=== PATIENT | female | born 1935 | race Caucasian/White ===

== ENCOUNTER → 2017-12-08 | Outpatient (CLI) | payer MEDICARE | LOC: M.ULTRA 12:14 | DX: I73.9 Peripheral vascular disease, unspecified (principal) ==

== ENCOUNTER 2018-03-16 17:54 | Inpatient (IN) | payer MEDICARE ==
[~2018-03-16] VITALS: Ht 165.1 cm; Wt 65.8 kg
--- NOTE | ~2018-03-16 | CON ---
[address] [address] CONSULTATION Name: NICKNICOLETYLER Hannah Room: [address] IN [facility].#: [id number] Admission: 03/16/18 Attend Phys: Too Guidry MD Discharge: Date of : 39 Report #: [id number] THIS REPORT FOR: //name// CC: Too Wilsona Isaac HISTORY OF PRESENT ILLNESS: An 82-year-old female was seen complaining of pain of her left ankle. She noted the insidious onset of left ankle pain several weeks ago. Her pain became progressively worse to the point that she was unable to bear weight on her left leg. She presented to the Emergency Room where she was evaluated and was advised to be hospitalized for acute treatment. She feels that she recently had chills and fevers. She has never had symptoms of this nature previously. She had x-rays performed of her left ankle, which revealed mild degenerative changes with mild effusion. These findings were confirmed on a CT scan. PHYSICAL EXAMINATION: Today revealed a well-developed, well-nourished female who is alert, cooperative, and well oriented x 3. She was noted to have diffuse swelling about the left ankle joint. There was some fullness about the ankle joint, indicating an effusion. The ankle joint is tender, warm and red. It was felt that she had a cellulitis with synovitis of the left ankle and was placed on parenteral antibiotics. She incidentally had a uric acid performed in the Emergency Room. This study was within normal limits. Other inflammatory diseases will have to be ruled out in addition to possible infectious etiology. She will be followed while hospitalized. DIAGNOSES: Cellulitis and synovitis of the left ankle. Thank you for the opportunity of seeing the patient. By: [id number] Weeks MD /nt
[2018-03-16 18:09] VITALS: BP 135/106
[2018-03-16] MEDS ORDERED: ASPIR 8181 MG PO (18:14)
[2018-03-16] MEDS ORDERED: NORVASC10 MG PO (18:14)
[2018-03-16] MEDS ORDERED: LOPRESSOR50 MG PO (18:14)
[2018-03-16 19:40] LABS: HEMATOCRIT 38.4 % (37.0-47.0); MCH 33.3 pg (26.0-34.0); MCV 98.1 fL (80.0-100.0); MPV 8.6 fl. (7.2-11.1); NUCLEATED RBCS 0 /100WBC; PLATELET COUNT* 213 thou/uL (150-400); RBC 3.91 mil/uL (4.20-5.00); RDW-CV 12.3 % (10.5-14.5); WBC 7.7 thou/uL (4.0-11.0)
[2018-03-16 19:49] LABS: ANION GAP 8 mmol/L (7-16); BUN 20 mg/dL (7-18); CALCIUM 9.2 mg/dL (8.5-10.1); CHLORIDE 99 mmol/L (98-107); CO2 26 mmol/L (21-32); CREATININE 1.1 mg/dL (0.6-1.3); GLUCOSE 130 mg/dL (70-99); SODIUM 133 mmol/L (136-145)
[2018-03-16 19:50] LABS: PROTIME 10.6 Seconds (9.20-11.50)
[2018-03-16 20:00] LABS: ALBUMIN 3.4 g/dL (3.4-5.0); ALKALINE PHOSPHATASE 56 U/L (46-116); NT-PRO BRAIN NAT PEPTIDE 863 pg/mL (<300); SGOT 15 U/L (15-37); SGPT 15 U/L (30-65); TOTAL BILIRUBIN 0.5 mg/dL (<0.1-1.0); TOTAL PROTEIN 7.3 g/dL (6.4-8.2); TROPONIN-I LEVEL <0.06 ng/mL (<0.06)
[2018-03-16 20:09] LABS: ABSOLUTE EOSINOPHILS 0.2 thou/uL (0.0-0.7); ABSOLUTE MONOCYTES 0.8 thou/uL (0.0-1.2); ABSOLUTE NEUTROPHILS 5.7 thou/uL (1.6-8.1)
[2018-03-16 20:10] LABS: PLATELET ESTIMATE ADEQUATE
[2018-03-16 20:44] LABS: ESR (SEDRATE) 68 mm/hr (0-30)
[2018-03-16 21:59] VITALS: BP 121/48
[2018-03-16 22:00] VITALS: BP 130/49
[2018-03-17 09:50] VITALS: BP 137/60
--- NOTE | 2018-03-17 13:56 | EKG ---
[place] [address] ELECTROCARDIOGRAM REPORT Name: MIGUEL TUCKERDale Hannah Room: [address] IN [facility]#: [id number] Admission: 03/16/18 Attend Phys: Too Guidry MD Discharge: Date of : 39 Report #: [id number] THIS REPORT FOR: //name// [facility] ED Test Date: 2018-03-16 Test Time: 19:39:54 Pat Name: TYLER TUCKER Department: Room: [facility] Gender: Manager Exchange: Saroj DOWNS : 1935 Requested By: Shahla Enrique Order Number: [id number] MD: Cristofer Calles Measurements Intervals [place] Rate: 65 P: 63 ME: 167 QRS: -41 QRSD: 92 T: 45 QT: 380 QTc: 396 Interpretive Statements Sinus rhythm Ventricular premature complex Left axis deviation Abnormal R-wave progression, early transition No previous ECG available for comparison Electronically Signed On 03-17-2018 13:56:41 TREASURY ANALYST by Cristofer Calles [email or web address] <ELECTRONICALLY SIGNED> By: Cristofer Calles MD, [facility] 03/17/18 1982 38 38 Cristofer Calles MD, [facility] /EPI
[2018-03-17 16:00] VITALS: BP 128/54
[2018-03-18 04:24] LABS: HEMATOCRIT 34.2 % (37.0-47.0); HEMOGLOBIN 11.8 gm/dL (12.0-15.0); MCH 33.9 pg (26.0-34.0); MCHC 34.5 g/dL (28.0-37.0); MCV 98.3 fL (80.0-100.0); MPV 8.7 fl. (7.2-11.1); RBC 3.47 mil/uL (4.20-5.00); RDW-CV 12.2 % (10.5-14.5); WBC 5.9 thou/uL (4.0-11.0)
[2018-03-18 04:59] LABS: CALCIUM 7.8 mg/dL (8.5-10.1); CREATININE 0.8 mg/dL (0.6-1.3); MAGNESIUM 1.9 mg/dL (1.8-2.4); POTASSIUM 3.8 mmol/L (3.5-5.1)
[2018-03-18 08:35] VITALS: BP 142/68
[2018-03-18 16:31] VITALS: BP 143/70
[2018-03-18 20:00] VITALS: BP 102/66
[2018-03-19 04:00] VITALS: BP 143/77
[2018-03-19 04:31] LABS: CALCIUM 8.9 mg/dL (8.5-10.1); CREATININE 0.9 mg/dL (0.6-1.3); MAGNESIUM 2.1 mg/dL (1.8-2.4); POTASSIUM 4.4 mmol/L (3.5-5.1)
[2018-03-19 08:00] VITALS: BP 150/63
[2018-03-19 15:49] VITALS: BP 140/75
[2018-03-19 20:00] VITALS: BP 139/60
[2018-03-20 08:15] VITALS: BP 138/48
[2018-03-20 15:40] VITALS: BP 137/51
[2018-03-20 20:00] VITALS: BP 105/50
[2018-03-21 04:49] LABS: CALCIUM 8.8 mg/dL (8.5-10.1); CREATININE 0.9 mg/dL (0.6-1.3); POTASSIUM 3.7 mmol/L (3.5-5.1)
[2018-03-21 08:30] VITALS: BP 158/71
[2018-03-21] MEDS ORDERED: KEFLEX500 M1 PO (13:02)
[2018-03-21] MEDS ORDERED: PREDNISONE 20 M20 M1 PO (13:04)
[2018-03-21 13:34] VITALS: BP 158/71
[2018-03-21 15:01] VITALS: BP 158/71
== END 2018-03-21 15:01 | disposition home health service (06) | DRG 872 ==
LOC: M.ERS 17:54 → M.ORTHSURG 20:46 → M.TBA-ER 20:46 → M.ORTHSURG 22:03
PROVIDERS: Emergency Medicine; Family Medicine; Internal Medicine; ADMIT Internal Medicine
DX: A41.9 Sepsis, unspecified organism (principal); E87.1 Hypo-osmolality and hyponatremia; N17.9 Acute kidney failure, unspecified; L03.116 Cellulitis of left lower limb; M65.872 Other synovitis and tenosynovitis, left ankle and foot; I49.3 Ventricular premature depolarization; J45.909 Unspecified asthma, uncomplicated; Z90.710 Acquired absence of both cervix and uterus; Z79.82 Long term (current) use of aspirin; Z79.899 Other long term (current) drug therapy; Z88.8 Allergy status to other drugs, medicaments and biological substances; Z91.012 Allergy to eggs

== ENCOUNTER → 2019-01-12 | Outpatient (CLI) | payer MEDICARE ==
[~2019-01-12] MED LIST: ASPIR 8181 MG PO; KEFLEX500 M1 PO; LOPRESSOR50 MG PO; NORVASC10 MG PO; PREDNISONE 20 M20 M1 PO
== END ==
LOC: M.RAD 13:24
DX: Z13.820 Encounter for screening for osteoporosis (principal); Z78.0 Asymptomatic menopausal state

== ENCOUNTER → 2019-05-19 | Outpatient (CLI) | payer MEDICARE ==
[2019-05-19 09:33] LABS: CHOLESTEROL 173 mg/dL (<200); HDL CHOLESTEROL 51 mg/dL (>40); LDL CHOLESTEROL 107 mg/dL (<100); TC:HDL 3.4 Ratio (Not establshd); TRIGLYCERIDE 78 mg/dL (<150); VLDL 16 mg/dL (<40)
[2019-05-19 09:35] LABS: SERUM ASSESSMENT Clear
== END ==
LOC: M.LAB 09:00
PROVIDERS: Nurse Practitioner
DX: E78.5 Hyperlipidemia, unspecified (principal)

== ENCOUNTER → 2019-09-29 | Outpatient (CLI) | payer MEDICARE | LOC: M.ULTRA 10:42 | PROVIDERS: ATTEND Nurse Practitioner Family | DX: M79.89 Other specified soft tissue disorders (principal) ==

== ENCOUNTER → 2020-04-10 | Outpatient (CLI) | payer MEDICARE ==
--- NOTE | 2020-04-10 14:34 | 2DMMODE ---
[place] [address] 2 D/M-MODE ECHOCARDIOGRAM Name: TYLER TUCKER Room: [facility]#: [id number] Admission: 04/10/20 Attend Phys: Sanjana Gray Discharge: Date of : 39 Date of Service: 04/10/20 1433 Report #: [id number] THIS REPORT FOR: cc: Sanjana Gray,Jerome Marte MD [facility] ~ APPROVED REPORT Study performed: 04/10/2020 09:23:23 EXAM: Comprehensive 2D, Doppler, and color-flow Echocardiogram / Bubble Study Patient Location: Out-Patient BSA: 1.70 HR: 75 bpm BP: 150/84 mmHg Other Information Study Quality: Good Indications Dyspnea Weakness Echo Enhancing Agent Indication: Rule out Shunt Agent(s) / Amount(s) Used: Agitated Saline 10 cc 2D Dimensions IVSd: 11.04 (7-11mm) LVOT Diam: 19.80 (18-24mm) LVDd: 37.09 mm PWd: 10.84 (7-11mm) Ascending Ao: 27.75 (22-36mm) LVDs: 23.86 (25-40mm) Aortic Root: 27.26 mm Volumes Left Atrial Volume (Systole) LA ESV Index: 15.30 mL/m2 Aortic Valve AoV Peak Pepito.: 1.23 m/s AO Peak Gr.: 6.02 mmHg LVOT Max P.97 mmHg AO Mean Gr.: 3.03 mmHg LVOT Mean P.29 mmHg LVOT Max V: 1.11 m/[place] [address] 2 D/M-MODE ECHOCARDIOGRAM Name: TYLER TUCKER Room: [facility]#: [id number] Admission: 04/10/20 Attend Phys: Sanjana Gray Discharge: Date of : 39 Date of Service: 04/10/20 1433 Report #: [id number] AO V2 VTI: 22.70 cm LVOT Mean V: 0.69 m/s PITER (VTI): 3.39 cm2 LVOT V1 VTI: 25.02 cm Mitral Valve E/A Ratio: 0.86 MV Decel. Time: 281.78 ms MV E Max Pepito.: 0.81 m/s MV PHT: 81.72 ms MVA (PHT): 2.69 cm2 TDI E/Lateral E': 8.10 E/Medial E': 8.10 Medial E' Pepito.: 0.10 m/s Lateral E' Pepito.: 0.10 m/s Pulmonary Valve PV Peak Pepito.: 0.87 m/s PV Peak Gr.: 3.01 mmHg Tricuspid Valve RAP Estimate: 5.00 mmHg TR Peak Gr.: 24.22 mmHg RVSP: 29.22 mmHg PA Pressure: 29.22 mmHg Left Ventricle The left ventricle is normal size. There is normal LV segmental wall motion. There is normal left ventricular wall thickness. Left ventricular systolic function is normal. LVEF is 55-60%. This study is not technically sufficient to allow evaluation of the LV diastolic function due to atrial fibrillation. Right Ventricle The right ventricle is normal size. The right ventricular systolic function is normal. Atria The left atrium size is normal. Injection of bubbles documented no interatrial shunt. The right atrium size is normal. Aortic Valve Mild aortic valve sclerosis. No aortic regurgitation is present. There is no aortic valvular stenosis. Mitral Valve The mitral valve is normal in structure. Mild mitral regurgitation. No evidence [place] [address] 2 D/M-MODE ECHOCARDIOGRAM Name: TYLER TUCKER Room: [facility]#: [id number] Admission: 04/10/20 Attend Phys: Sanjana Gray Discharge: Date of : 39 Date of Service: 04/10/20 1433 Report #: [id number] Tricuspid Valve The tricuspid valve is normal in structure. Mild tricuspid regurgitation. The RVSP is 30-35 mmHg. Pulmonic Valve The pulmonary valve is normal in structure. There is no pulmonic valvular regurgitation. Great Vessels The aortic root is normal in size. IVC is normal in size and collapses >50% with inspiration. Pericardium There is no pericardial effusion. <Conclusion> The left ventricle is normal size. There is normal left ventricular wall thickness. Left ventricular systolic function is normal. LVEF is 55-60%. This study is not technically sufficient to allow evaluation of the LV diastolic function due to atrial fibrillation. Injection of bubbles documented no interatrial shunt. Mild aortic valve sclerosis. Mild mitral regurgitation. Mild tricuspid regurgitation. The RVSP is 30-35 mmHg. IVC is normal in size and collapses >50% with inspiration. <ELECTRONICALLY SIGNED> By: Jerome Loera MD, FACC 04/10/20 1433 1433 1433 Jerome Loera MD, FACC /INF
== END ==
LOC: M.CRD 09:31
PROVIDERS: ATTEND Family Medicine
DX: I08.3 Combined rheumatic disorders of mitral, aortic and tricuspid valves (principal)

== ENCOUNTER → 2020-05-11 | Outpatient (CLI) | payer MEDICARE | LOC: M.ULTRA 05-01 15:39 | PROVIDERS: ATTEND Family Medicine | DX: M50.323 Other cervical disc degeneration at C6-C7 level (principal); M62.81 Muscle weakness (generalized); R20.0 Anesthesia of skin; R20.2 Paresthesia of skin; M25.78 Osteophyte, vertebrae; M48.02 Spinal stenosis, cervical region ==